=== PATIENT | male | born 1950 | race Caucasian/White ===

== ENCOUNTER → 2019-08-09 | Day surgery (SDC) | payer OTHER ==
[~2019-08-09] VITALS: Ht 175.3 cm; Wt 54.0 kg
[~2019-08-09] MED LIST: LIDOCAINE VISCOUS 2% 15ML UD ONE; LIDOCAINE VISCOUS 2% 15ML UD PO ONE; MIDAZOLAM HCL 1MG/1ML-2 ML VIAL IV ONE; MIDAZOLAM HCL 1MG/1ML-2 ML VIAL ONE; diphenhdrAMINE HCL 50 MG/1 ML VL IV ONE; diphenhdrAMINE HCL 50 MG/1 ML VL ONE; fentaNYL CITRATE 100 MCG/2 ML VL IV ONE; fentaNYL CITRATE 100 MCG/2 ML VL ONE
== END | disposition home or self-care (01) ==
LOC: CATH 06:54
PROVIDERS: ATTEND Internal Medicine
DX: I34.1 Nonrheumatic mitral (valve) prolapse (principal); K46.9 Unspecified abdominal hernia without obstruction or gangrene; Z98.890 Other specified postprocedural states; Z11.59 Encounter for screening for other viral diseases
CPT/HCPCS: 93312; J2250; J3010; J7030; J7040; U0003; 99152